=== PATIENT | male | born 1955 | race African-American/Black ===

== ENCOUNTER 2018-07-01 07:22 | Day surgery (SDC) | payer MEDICARE, MEDICAID ==
[2018-06-24 09:32] LABS: HEMATOCRIT 42.9 % (37.9-51.0); HEMOGLOBIN 13.7 g/dL (13.5-17.0); MEAN CORPUSCULAR HGB CONC 31.8 g/dL (32.0-36.0); MEAN CORPUSCULAR VOLUME 72 fl (80-97); PLATELET COUNT 185 10^3/uL (150-450); RED BLOOD COUNT 5.95 10^6/uL (4.35-5.55); RED CELL DISTRIBUTION WIDTH 14.2 % (11.5-14.0); WHITE BLOOD COUNT 4.7 10^3/uL (4.0-10.5)
--- NOTE | 2018-06-24 09:47 | RADIOLOGY REPORT (SQ) ---
EXAM DESCRIPTION: CHEST PA/LATERAL COMPLETED DATE/TIME: 06/24/2018 9:32 am REASON FOR STUDY: PRE-OP,COUGH COMPARISON: AP chest 04/13/2008 EXAM PARAMETERS: NUMBER OF VIEWS: two views TECHNIQUE: Digital Frontal and Lateral radiographic views of the chest acquired. RADIATION DOSE: NA LIMITATIONS: none FINDINGS: LUNGS AND PLEURA: No opacities, masses or pneumothorax. No pleural effusion. MEDIASTINUM AND HILAR STRUCTURES: No masses or contour abnormalities. HEART AND VASCULAR STRUCTURES: Heart normal size. No evidence for failure. BONES: No acute findings. HARDWARE: None in the chest. OTHER: No other significant finding. IMPRESSION: NO SIGNIFICANT RADIOGRAPHIC FINDING IN THE CHEST. TECHNICAL DOCUMENTATION: JOB ID: [id number] [employer]- All Rights Reserved Reading location - IP/workstation name: [email or web address]
[2018-06-24 09:55] LABS: ANION GAP 12 (5-19); BLOOD UREA NITROGEN 13 mg/dL (7-20); CALCIUM 9.9 mg/dL (8.4-10.2); CARBON DIOXIDE 29 mmol/L (22-30); CHLORIDE 98 mmol/L (98-107); GLUCOSE 160 mg/dL (75-110); POTASSIUM 4.2 mmol/L (3.6-5.0); SODIUM 139.4 mmol/L (137-145)
--- NOTE | 2018-06-24 16:30 | EKG REPORT ---
SEVERITY:- NORMAL ECG - SINUS RHYTHM : Confirmed by: Donny Simpson MD 24-Jun-2018 16:29:03
[~2018-07-01 07:22] MED LIST: CEFAZOLIN 2 GM/D5W RTU 2 GM/50 ML RTUPB IV PRN; FENTANYL CITRATE INJ/PF 100 MCG/2 ML AMPUL ONE; LACTATED RINGERS 1000 ML IV PRN; LIDOCAINE 0.5% INJ-PF (5 MG/ML) 50 ML SDV SUBCUT PRN; MIDAZOLAM 2 MG/2 ML INJ ONE; ONDANSETRON HCL INJ/PF 4 MG/2 ML SDV ONE; PROPOFOL INJ 200 MG/20 ML VIAL IV ONE
[2018-07-01] MEDS ORDERED: CEFAZOLIN 2 GM/D5W RTU 2 GM/50 ML RTUPB IV ONE (07:24)
[2018-07-01] MEDS ORDERED: BUPIVACAINE HCL 0.25 % INJ/PF (2.5 MG/1 ML) 30 ML VIAL ONE ×2 (10:12→10:14)
[2018-07-01] MEDS ORDERED: POVIDONE-IODINE 5% OPH PREP SOLN 30 ML ONE (10:12)
[2018-07-01] MEDS ORDERED: LIDOCAINE 1% INJ-PF (10 MG/ML) 30 ML SDV ONE ×2 (10:12→10:14)
[2018-07-01] MEDS ORDERED: ONDANSETRON HCL INJ/PF 4 MG/2 ML SDV IV PRN (11:00)
[2018-07-01] MEDS ORDERED: DIPHENHYDRAMINE HCL 50 MG/ML VIAL IV PRN (11:00)
[2018-07-01] MEDS ORDERED: PROMETHAZINE HCL INJ 25 MG/1 ML VIAL IV PRN ×2 (11:00)
[2018-07-01] MEDS ORDERED: MORPHINE SULFATE 10 MG/ML INJ IV PRN (11:00)
[2018-07-01] MEDS ORDERED: FENTANYL CITRATE INJ/PF 100 MCG/2 ML AMPUL IV PRN ×3 (11:00)
[2018-07-01] MEDS ORDERED: MEPERIDINE HCL/PF INJ 25 MG/1 ML DISP.SYRIN IV PRN (11:00)
--- NOTE | 2018-07-01 11:39 | Discharge Summary ---
Discharge Summary (SDC) - Discharge Final Diagnosis: Face lipoma, left neck sebaceous cyst Date of Surgery: 07/01/18 Discharge Date: 07/01/18 Condition: Stable Treatment or Instructions: Discharge home. Diet as tolerated. Activity: Nonstrenuous. Follow-up with me in 7 to 10 days. Ultram 50 mg p.o. every 6 hours as needed for pain. Okay to shower on Wednesday. No tub baths or swimming pools x2 weeks. Referrals: CE BURRELL MD [Primary Care Provider] - Discharge Diet: As Tolerated Respiratory Treatments at Home: Deep Breathing/Coughing, Incentive Spirometer Discharge Activity: Balance Activity w/Rest Home Care Assistance: None Needed Report the Following to Your Physician Immediately: Shortness of Breath, Nausea, Vomiting, Increase in Pain, Fever over 101 Degrees, Unusual Bleeding, Redness
--- NOTE | 2018-07-01 11:44 | Operative Report ---
Nonrecallable Operative Report DATE OF SURGERY: 07/01/18 PREOPERATIVE DIAGNOSIS: Face lipoma, sebaceous cyst of the neck. POSTOPERATIVE DIAGNOSIS: 1. 2 cm forehead lipoma. 2. 2 cm left neck sebaceous cyst. OPERATION: 1. Excision of 2 cm lipoma of the left forehead. 2. Intermediate closure of 2 cm face incision. 3. Excision of 2 cm sebaceous cyst of the left neck. 4. Intermediate closure of 2 cm left neck incision. SURGEON: JACOB ALLISON DCS ENGINEER: MENA AVERY ANESTHESIA: LMAC TISSUE REMOVED OR ALTERED: 1. 2 cm face lipoma. 2. 2 cm left neck sebaceous cyst COMPLICATIONS: None apparent ESTIMATED BLOOD LOSS: Minimal PROCEDURE: Procedure in detail: After informed consent was obtained, the patient was brought to the operating room and laid in the supine position. The area of the face and neck were prepped and draped in a normal sterile fashion. An incision was created within a fold of the forehead with a 15 blade scalpel. Dissection was carried through the muscular layer down to the skull. The lipoma was identified and removed from the surrounding tissues using sharp dissection. Next, the muscular layers were closed using 3-0 Vicryl suture in interrupted fashion. The overlying skin was closed using 4-0 Vicryl Rapide suture in subcuticular fashion. Attention was then turned to the left neck cyst. Elliptical incision was created around the cyst with a 15 blade scalpel. Dissection was carried through the subcutaneous tissue using sharp dissection. The cyst was freed from the skin and fatty soft tissue of the neck. Once this was completed, hemostasis was achieved. The subcutaneous tissues were closed using 3-0 Vicryl suture in simple running fashion. The overlying skin was closed using 4-0 Vicryl Rapide suture in subcuticular fashion. Dressings were placed and the procedure was concluded. All sponge, instrument, and needle counts were correct x2. Condition: Stable. Mena Avery PA-C was scrubbed and present the entirety the procedure. She assisted with all portions of the procedure including opening of the skin, removal of the lipoma, excision of the cyst, closure of the muscular layers of the scalp, closure of the fatty tissue of the neck, closure of the skin.
[2018-07-01] MEDS ORDERED: TRAMADOL HCL 50 MG TABLET ONE (12:10)
[2018-07-01 16:23] VITALS: BP 132/86
== END 2018-07-01 13:15 | disposition home or self-care (01) ==
LOC: OROUT 07:22
PROVIDERS: ATTEND Surgery
DX: D17.0 Benign lipomatous neoplasm of skin and subcutaneous tissue of head, face and neck (principal); L72.0 Epidermal cyst; L91.0 Hypertrophic scar; E78.00 Pure hypercholesterolemia, unspecified; G47.30 Sleep apnea, unspecified; R00.0 Tachycardia, unspecified; I10 Essential (primary) hypertension; E11.9 Type 2 diabetes mellitus without complications
CPT/HCPCS: 93005; 36415 ×2; 82962; 84132; 85027; 80048; 88304 ×2; 71046; 93010; 11442; 11422; 12042; J2250; J3010; J3490 ×2; J2704; A9270; J0690; 300; 88305; J2405

== ENCOUNTER → 2018-11-03 | Outpatient (CLI) | payer MEDICARE, MEDICAID ==
[2018-11-03 13:15] LABS: ABSOLUTE EOSINOPHILS # (AUTO) 0.2 10^3/uL (0.0-0.6); ABSOLUTE LYMPHOCYTES (AUTO) 2.4 10^3/uL (0.5-4.7); ABSOLUTE MONOCYTES (AUTO) 0.5 10^3/uL (0.1-1.4); ABSOLUTE NEUT (AUTO) 3.2 10^3/uL (1.7-8.2); BASOPHILS % (AUTO) 0.6 % (0-2); EOSINOPHILS % (AUTO) 3.3 % (0-6); HEMATOCRIT 41.4 % (37.9-51.0); HEMOGLOBIN 13.1 g/dL (13.5-17.0); MEAN CORPUSCULAR HEMOGLOBIN 22.8 pg (27.0-33.4); MEAN CORPUSCULAR HGB CONC 31.6 g/dL (32.0-36.0); MEAN CORPUSCULAR VOLUME 72 fl (80-97); MONOCYTES % (AUTO) 8.5 % (3-13); PLATELET COUNT 178 10^3/uL (150-450); RED BLOOD COUNT 5.72 10^6/uL (4.35-5.55); RED CELL DISTRIBUTION WIDTH 14.9 % (11.5-14.0); SEGMENTED NEUTROPHILS % (AUTO) 49.6 % (42-78); TOTAL CELLS COUNTED % (AUTO) 100 %; WHITE BLOOD COUNT 6.4 10^3/uL (4.0-10.5)
[2018-11-03 13:40] LABS: URIC ACID 6.7 mg/dL (3.5-8.5)
[2018-11-03 13:46] LABS: C-REACTIVE PROTEIN < 5.0 mg/L (<10.0)
[2018-11-03 13:52] LABS: ERYTHROCYTE SEDIMENTATION RATE 17 mm/hr (0-20)
== END ==
LOC: OD 12:38
PROVIDERS: ATTEND Orthopaedic Surgery
DX: M25.50 Pain in unspecified joint (principal)
CPT/HCPCS: 36415; 84550; 85025; 85652; 86038; 86140; 86200; 86430

== ENCOUNTER 2019-03-07 11:23 | Day surgery (SDC) | payer MEDICARE, MEDICAID ==
[2019-02-28 10:29] LABS: ABSOLUTE EOSINOPHILS # (AUTO) 0.2 10^3/uL (0.0-0.6); ABSOLUTE LYMPHOCYTES (AUTO) 1.9 10^3/uL (0.5-4.7); ABSOLUTE MONOCYTES (AUTO) 0.5 10^3/uL (0.1-1.4); ABSOLUTE NEUT (AUTO) 3.1 10^3/uL (1.7-8.2); BASOPHILS % (AUTO) 0.5 % (0-2); EOSINOPHILS % (AUTO) 3.6 % (0-6); HEMATOCRIT 39.2 % (37.9-51.0); HEMOGLOBIN 12.6 g/dL (13.5-17.0); LYMPHOCYTES % (AUTO) 33.1 % (13-45); MEAN CORPUSCULAR HEMOGLOBIN 23.1 pg (27.0-33.4); MEAN CORPUSCULAR HGB CONC 32.1 g/dL (32.0-36.0); MEAN CORPUSCULAR VOLUME 72 fl (80-97); MONOCYTES % (AUTO) 7.9 % (3-13); PLATELET COUNT 196 10^3/uL (150-450); RED BLOOD COUNT 5.46 10^6/uL (4.35-5.55); RED CELL DISTRIBUTION WIDTH 14.5 % (11.5-14.0); SEGMENTED NEUTROPHILS % (AUTO) 54.9 % (42-78); TOTAL CELLS COUNTED % (AUTO) 100 %; WHITE BLOOD COUNT 5.7 10^3/uL (4.0-10.5)
[2019-02-28 11:06] LABS: ANION GAP 11 (5-19); BLOOD UREA NITROGEN 10 mg/dL (7-20); CALCIUM 9.7 mg/dL (8.4-10.2); CARBON DIOXIDE 28 mmol/L (22-30); CHLORIDE 101 mmol/L (98-107); GLUCOSE 115 mg/dL (75-110); POTASSIUM 4.2 mmol/L (3.6-5.0)
--- NOTE | 2019-02-28 13:56 | EKG REPORT ---
SEVERITY:- NORMAL ECG - SINUS RHYTHM : Confirmed by: Donny Simpson MD 28-Feb-2019 13:54:49
--- NOTE | 2019-02-28 15:47 | RADIOLOGY REPORT (SQ) ---
EXAM DESCRIPTION: CHEST PA/LATERAL COMPLETED DATE/TIME: 02/28/2019 10:06 am REASON FOR STUDY: PRE-OP COMPARISON: 06/24/2018. EXAM PARAMETERS: NUMBER OF VIEWS: two views TECHNIQUE: Digital Frontal and Lateral radiographic views of the chest acquired. RADIATION DOSE: NA LIMITATIONS: none FINDINGS: LUNGS AND PLEURA: No opacities, masses or pneumothorax. No pleural effusion. MEDIASTINUM AND HILAR STRUCTURES: No masses or contour abnormalities. HEART AND VASCULAR STRUCTURES: Heart normal size. No evidence for failure. BONES: No acute findings. HARDWARE: None in the chest. OTHER: No other significant finding. IMPRESSION: NO SIGNIFICANT RADIOGRAPHIC FINDING IN THE CHEST. TECHNICAL DOCUMENTATION: JOB ID: [id number] [employer]- All Rights Reserved Reading location - IP/workstation name: [email or web address]
[~2019-03-07 11:23] MED LIST changes: -CEFAZOLIN 2 GM/D5W RTU 2 GM/50 ML RTUPB IV PRN; +CEFAZOLIN SODIUM 2 GM in DEXTROSE 5%-WATER 100 ML IV PRN; -FENTANYL CITRATE INJ/PF 100 MCG/2 ML AMPUL ONE; -LIDOCAINE 0.5% INJ-PF (5 MG/ML) 50 ML SDV SUBCUT PRN; -MIDAZOLAM 2 MG/2 ML INJ ONE; -ONDANSETRON HCL INJ/PF 4 MG/2 ML SDV ONE; -PROPOFOL INJ 200 MG/20 ML VIAL IV ONE
[2019-03-07] MEDS ORDERED: CEFAZOLIN INJ 1 GM VIAL ONE (11:56)
[2019-03-07 12:38] LABS: POTASSIUM 3.9 mmol/L (3.6-5.0)
[2019-03-07] MEDS ORDERED: FENTANYL CITRATE INJ/PF 100 MCG/2 ML AMPUL ONE (14:25)
[2019-03-07] MEDS ORDERED: PROPOFOL INJ 200 MG/20 ML VIAL IV ONE (14:26)
[2019-03-07] MEDS ORDERED: MIDAZOLAM 2 MG/2 ML INJ ONE (14:26)
[2019-03-07] MEDS ORDERED: LIDOCAINE 1% INJ-PF (10 MG/ML) 30 ML SDV ONE (14:59)
[2019-03-07] MEDS ORDERED: MEPERIDINE HCL/PF INJ 25 MG/1 ML DISP.SYRIN IV PRN (15:04)
[2019-03-07] MEDS ORDERED: PROMETHAZINE HCL INJ 25 MG/1 ML VIAL IV PRN (15:04)
[2019-03-07] MEDS ORDERED: FENTANYL CITRATE INJ/PF 100 MCG/2 ML AMPUL IV PRN ×3 (15:04)
[2019-03-07] MEDS ORDERED: DIPHENHYDRAMINE HCL 50 MG/ML VIAL IV PRN (15:04)
[2019-03-07] MEDS ORDERED: MORPHINE SULFATE 10 MG/ML INJ IV PRN (15:04)
[2019-03-07] MEDS ORDERED: HYDROCODONE/ACETAMINOPHEN 5-325 MG TABLET PO PRN (15:29)
--- NOTE | 2019-03-07 15:30 | Discharge Summary ---
Discharge Summary (SDC) - Discharge Final Diagnosis: Left middle trigger finger Date of Surgery: 03/07/19 Condition: Good Treatment or Instructions: Schedule Follow Up w/ Dr. Gary Funes @ [facility] for Surgery to be seen in 10-14 days or as scheduled [place]: [place]: [place]: May remove dressing on postop day #3, keep incision covered and dry. Ice and elevate May begin finger range of motion attempting to make full fist. Stool softener of choice when on pain medication. USE OF [id number] IBUPROFEN: Ibuprofen (Advil, Nuprin, Medipren, Motrin IB) is a medication for fever and pain control. In addition, it has anti- inflammatory effects which may be beneficial, especially in the treatment of injuries. It's best to take ibuprofen with food. Persons with ulcer disease or allergy to aspirin should notify their physician of this before taking ibuprofen. Ibuprofen can be given every four to six hours, for a total of four doses daily. Age Pain or fever dose Antiinflammatory dose 6-8 yr 200 mg (1 tab) 200 mg (1 tab) 9-11 yr 200 mg (1 tab) 200-400 mg (1-2 tab) 11-14 yr 200-400 mg (1-2 tab) 400 mg (2 tab) 15-adult 400 mg (2 tab) 600 mg (3 tab) ORAL NARCOTIC MEDICATION: You have been given a prescription for pain control. This medication is a narcotic. It's best taken with food, as nausea can result if taken on an empty stomach. Don't operate machinery or drive within six hours of taking this medication. Do not combine this medicine with alcohol, or with any medication which can cause sedation (such as cold tablets or sleeping pills) unless you get permission from the physician. Narcotics tend to cause constipation. If possible, drink plenty of fluids and eat a diet high in fiber and fruits. Please be aware that prescription narcotics also have the potential for abuse. People become addicted to these medications because of the general sense of wellbeing that they induce. This feeling along with a significant reduction in tension, anxiety, and aggression provides a stimulating seductive quality to these drugs. Once your pain is under control, we encourage you to discard your unused narcotics. Referrals: SHANIQUA MAE, [employer] ORIGINATOR ASSISTANT-C [Primary Care Provider] - Discharge Diet: As Tolerated Respiratory Treatments at Home: Deep Breathing/Coughing Discharge Activity: No Lifting Over 10 Pounds, No Lifting/Push/Pulling Report the Following to Your Physician Immediately: Fever over 101 Degrees, Unusual Bleeding, Redness, Swelling, Warmth, Increased Soreness
--- NOTE | 2019-03-07 15:31 | Operative Report ---
Operative Report DATE OF SURGERY: 03/07/19 PREOPERATIVE DIAGNOSIS: Left middle trigger finger POSTOPERATIVE DIAGNOSIS: Same OPERATION: Left middle A1 donna release SURGEON: MADISON MEI ANESTHESIA: LMAC COMPLICATIONS: None ESTIMATED BLOOD LOSS: Minimal PROCEDURE: Indication for above procedure: 63-year-old male with catching and locking of his left middle finger. Attempted conservative measures including injections without resolution of patient's symptoms at that point decision was made to proceed with operative intervention. Risk and benefits were explained patient verbalized understanding consented for surgical procedure. Procedure In Detail: Patient was seen and evaluated in the preoperative holding area. The LEFT upper extremity was initialized and marked. Patient received 2g of Ancef IV for bacterial prophylaxis. Patient was taken back to the operative room where transferred to the operative table. Once they were adequately anesthetized a nonsterile tourniquet was placed on the upper extremity. A surgical team debriefing was performed ensuring all instrumentation was available, the surgical procedure was discussed with possible concerns reviewed. A digital block was performed utilizing 10 mL of 1% lidocaine without epinephrine. The upper extremity was prepped with chlorhexidine and alcohol and draped in a sterile fashion. A timeout was done identifying correct patient, procedure and extremity everyone in attendance agree with this and verbalized no concerns. The extremity was exsanguinated the tourniquet was inflated to 250 mmHg. Longitudinal skin incision was made centered over the A1 donna of the middle finger. The radial and ulnar neurovascular bundles were identified and retracted from the wound. The A1 donna was identified and incised. The A1 donna was released to the level of the A2 donna but not through the A2 donna. The palmar aponeurotic donna was released proximal to the A1 donna. Patient was then awoken from MAC anesthesia and made a full network mgr there is no evidence of residual triggering or locking. The wound was then copiously irrigated with normal saline. Skin was closed with interrupted 4-0 nylon suture. Wound was dressed with Xeroform and a soft dressing. Sponge counts, instrument counts, needle counts counts were correct. Patient was then awoken from anesthesia. Transferred from the operating room table to the operating room stretcher. There was no intraoperative complications patient tolerated procedure well stable to PACU. Postoperative plan: Patient will follow-up as scheduled for wound check. They will call with any questions or concerns.
[2019-03-07 17:33] VITALS: BP 130/86
== END 2019-03-07 17:26 | disposition home or self-care (01) ==
LOC: OROUT 11:23
PROVIDERS: ATTEND Orthopaedic Surgery
DX: M65.332 Trigger finger, left middle finger (principal); M79.642 Pain in left hand; M25.841 Other specified joint disorders, right hand; M79.641 Pain in right hand; G47.33 Obstructive sleep apnea (adult) (pediatric); Z79.899 Other long term (current) drug therapy; Z79.84 Long term (current) use of oral hypoglycemic drugs; E11.9 Type 2 diabetes mellitus without complications; I10 Essential (primary) hypertension; Z87.891 Personal history of nicotine dependence
CPT/HCPCS: 93005; 36415 ×2; 82947; 84132; 85025; 80048; 71046; 93010; 01810; 26055; J2250; J0690; J3010; J3490; J2704; 1810